=== PATIENT | female | born 1960 | race Caucasian/White ===

== ENCOUNTER → 2016-08-25 | Outpatient (CLI) | payer BC ==
[~2016-08-25] MED LIST: ALBUTEROL17 GM INH; AZITHROMYCIN250 MG PO; FLONASE 0.05% N16 G1; NO MEDICATIONS; PERCOCET 5-3251 TAB PO; PREDNISONE PO; PROAIR HFA8.5 GM INH; PROTONIX PO; SINGULAIR PO; ZOFRAN ODT4 MG PO
--- NOTE | ~2016-08-25 | ST ---
Unit #: [id number] #: [id number] Patient: SCARLETT CROSS [id number] [facility]. [address] [address] [id number] O MR#: [id number] NAME: SCARLETT CROSS. : 1960 SEX: F STUDY DATE/TIME: 08/25/2016 UNIT: [facility] ROOM: STUDY DESCRIPTION: Attending Physician: Sly Ortiz M.D. Primary Care Physician: Sly Ortiz M.D. CARDIOLOGY REPORT PROCEDURE PERFORMED Lexiscan Cardiolite stress test. REPORT Baseline EKG was normal sinus rhythm with a ventricular rate of 66 and nonspecific T-wave abnormalities in lead V1. Lexiscan is a 4-minute test with Lexiscan being injected within the first minute followed by Cardiolite. FINDINGS 1. EKG during the test remained equivocal to baseline. No acute ischemic changes. 2. The patient had no complaints of chest pains, palpitations, dizziness, or shortness of air. 3. Maximum heart rate response was 114 beats per minute with a maximum blood pressure response of 180/96. 4. Cardiolite was injected after Lexiscan within the first minute of the test. Radionuclide tests are pending. Please correlate with nuclear images. Dictated by... Kelly Kathleen APRN for Saud Camp TD: 08/25/2016 10:18 JOB #: [id number] CARDIOLOGY REPORT Page 1 of 1 X CARDIOLOGY REPORT
--- NOTE | ~2016-08-25 | TH ---
Unit #: [id number] #: [id number] Patient: SCARLETT CROSS [id number] [facility]. [address] [address] [id number] O MR#: [id number] NAME: SCARLETT CROSS. : 1960 SEX: F STUDY DATE/TIME: UNIT: [facility] ROOM: STUDY DESCRIPTION: Nuclear Study Attending Physician: Sly Otriz M.D. Primary Care Physician: Sly Ortiz M.D. CARDIOLOGY REPORT EXAM Lexiscan Cardiolite Stress Test - Nuclear Portion PROCEDURE Using technetium 99m labeled Cardiolite, rest and stress SPECT images were obtained. Multiple SPECT images were obtained in various views including horizontal and vertical long axis and short axis views of the left ventricle. Images were obtained by gated SPECT method. The patient was administered 11.65 mCi of Cardiolite at rest. The patient was administered 33.8 mCi of Cardiolite after Lexiscan infusion was completed. On the stress images, there is normal perfusion noted. The rest images show normal perfusion. Comparing rest and stress images, there is no stress-induced ischemia noted. The left ventricular ejection fraction is calculated to be 76%. There is no focal wall motion abnormality seen. CONCLUSION 1. No stress-induced ischemia noted. 2. The left ventricular ejection fraction is calculated to be 76%. 3. There is no focal wall motion abnormality seen. 4. Normal Lexiscan Cardiolite stress test. Dictated by... Saud Camp TD: 08/25/2016 12:47 JOB #: [id number] Unit #: [id number] #: [id number] Patient: SCARLETT CROSS CARDIOLOGY REPORT Page 1 of 1 X Tamiok Burks MD <ELECTRONICALLY SIGNED> 10/07/16 1429 CARDIOLOGY REPORT
== END | disposition home or self-care (01) ==
LOC: CNUC 07:07
DX: Z01.812 Encounter for preprocedural laboratory examination (principal); J45.20 Mild intermittent asthma, uncomplicated; E66.01 Morbid (severe) obesity due to excess calories; Z86.2 Personal history of diseases of the blood and blood-forming organs and certain disorders involving the immune mechanism
CPT/HCPCS: 78452; 93017; A9500; J2785